=== PATIENT | female | born 1970 | race Caucasian/White ===

== ENCOUNTER → 2017-02-07 | Outpatient (CLI) | payer OTHER ==
[~2017-02-07] MED LIST: No meds per pt.
== END | disposition home or self-care (01) ==
LOC: CFH 08:50
PROVIDERS: ATTEND Family Medicine
DX: Z12.31 Encounter for screening mammogram for malignant neoplasm of breast (principal)
CPT/HCPCS: G0202

== ENCOUNTER → 2019-01-22 | Outpatient (CLI) | payer OTHER | END | disposition home or self-care (01) | LOC: RAD 08:59 | PROVIDERS: ATTEND Family Medicine | DX: M79.604 Pain in right leg (principal) ==

== ENCOUNTER → 2021-05-11 | Outpatient (CLI) | payer OTHER | END | disposition home or self-care (01) | LOC: CFH 10:36 | PROVIDERS: ATTEND Family Medicine | DX: N60.01 Solitary cyst of right breast (principal); R92.2 Inconclusive mammogram; N64.89 Other specified disorders of breast | CPT/HCPCS: 76642; 77061; 77065; G0279 ==

== ENCOUNTER 2021-06-25 04:51 | Emergency (ER) | payer OTHER ==
[~2021-06-25] VITALS: Ht 165.1 cm; Wt 77.5 kg
[2021-06-25] MEDS ORDERED: ASPIRIN 81 MG TABLET CHEW PO ONE (05:30)
--- NOTE | 2021-06-25 06:43 | NUR ---
PT TO ROOM FROM LOBBY
[2021-06-25 06:56] LABS: BASOPHILS % (AUTO) 0 % (0-1); EOSINOPHILS % (AUTO) 3 % (1-7); LYMPHOCYTES % (AUTO) 10 % (22-44); MEAN CORPUSCULAR HEMOGLOBIN 30.8 pg (27.0-34.8); MEAN CORPUSCULAR HGB CONC 32.8 g/dL (32.4-35.8); MEAN PLATELET VOLUME 8.5 fL (7.4-10.4); MONOCYTES % (AUTO) 6 % (2-9); NEUTROPHILS % (AUTO) 80 % (42-75); PLATELET COUNT 277 x10^3/uL (130-400); RED BLOOD COUNT 3.93 x10^6/uL (3.82-5.3); RED CELL DISTRIBUTION WIDTH 13.8 % (9.6-15.2)
[2021-06-25] MEDS ORDERED: ASPIRIN 81 MG TABLET CHEW ONE (07:12)
--- NOTE | 2021-06-25 07:15 | NUR ---
BEDSIDE REPORT AND CARE FROM CORNELIA READ AT THIS TIME. 50 Y/O F PRESENT STATING "CP STARTED YESTERDAY EVENING, GOT WORSE WHEN I LAID DOWN FOR BED, THEN SUBSIDING,THEN WOKE UP AT 4AM AND PAIN WAS BACK, IT'S IN THE CENTER AND MOVES OUT TO BOTH SIDES, IT'S WORSE WHEN I BREATH IN." CONT PULSE OX,BP, CARDIAC MONITORS APPLIED. VSS. SR ON MONITOR. EKG COMPLETED IN TRIAGE. RATES CP 5/10. A&OX4. DENIES SOB, COUGH, FEVER, CHILLS, N/V/D, DIZZINESS. ASSESSMENT COMPLETED. PT REPORTS TAKING ASPIRIN AT MIDNIGHT LAST NIGHT, UNSURE DOSAGE. TO DISCUSS ASA ORDERED WITH DR. KELLER. CALL LIGHT IN REACH. FALL PRECAUTIONS IN PLACE. SIDE RAILS UP. BED LOWEST POSITION.
--- NOTE | 2021-06-25 07:52 | NUR ---
DISCUSSED ASA ORDERED WITH DR. KELLER AND PT REPORT OF TAKING OWN ASA AT MIDNIGHT. MEDICATED HELD PER MD AT THIS TIME.
--- NOTE | 2021-06-25 08:18 | NUR ---
PT RESTING COMFORTABLY. DENIES NEED TO USE RESTROOM. REPORTS "PAIN IS THE SAME, ABOUT 4-5, MORE WORRIED THAN PAIN I THINK, STILL IN CENTER OF CHEST AND GOES OUT TO RIGHT AND LEFT WHEN I TAKE A DEEP BREATH, REGULAR BREATHING NOT BAD LIKE 2/10 PAIN." REFUSES NEED FOR PAIN MEDICATION AT THIS TIME. AWAITING LABS AND RECHECK BY ERP. VSS. SR ON MONITOR. CALL LIGHT IN REACH. FALL PRECUATIONS IN PLACE.
--- NOTE | 2021-06-25 08:37 | NUR ---
LABS STILL PENDING
[2021-06-25 08:42] LABS: ALANINE AMINOTRANSFERASE 27 U/L (12-78); ALBUMIN 3.1 g/dL (3.4-5.0); CALCIUM 9.1 mg/dL (8.5-10.1); CREATININE 0.73 mg/dL (0.55-1.02)
[2021-06-25 08:47] LABS: ALKALINE PHOSPHATASE 68 U/L (45-117); BILIRUBIN,TOTAL 0.3 mg/dL (0.2-1.0); TOTAL PROTEIN 7.4 g/dL (6.4-8.2); TROPONIN I < 0.015 ng/mL (0.000-0.045)
[2021-06-25 08:51] LABS: ANION GAP 5 mmol/L (5-15); CHLORIDE 108 mmol/L (98-107)
--- NOTE | 2021-06-25 08:53 | NUR ---
BEDSIDE REPORT AND TRANSFER OF CARE TO DANILO RN AT THIS TIME
--- NOTE | 2021-06-25 08:56 | NUR ---
BEDSIDE REPORT FROM RORO BONILLA. PT RESTING IN [facility], MONITORING IN PLACE, PT STATES NO NEEDS AT THIS TIME, AWAITING LAB RESULTS, PT UPDATED ON POC, NADN AT THIS TIME, WCTM.
[2021-06-25] MEDS ORDERED: OMNIPAQUE 350 MG/ML, 100ML BOTTLE ONE (09:55)
--- NOTE | 2021-06-25 11:43 | NUR ---
CT CALLED ABOUT READ NOT BEING BACK YET. PER DOOR TO DOOR LEAD GENERATION SREE, SHE WILL CHECK ON THE RESULT AND CALL BACK.
--- NOTE | 2021-06-25 12:09 | NUR ---
PER SREE, BOARD HAMMER OPERATOR, RADIOLOGIST HAS BEEN BUSY AND IS READING CT HE RECEIVE THEM. RADIOLOGIST EXT IS [id number].
[2021-06-25 12:21] VITALS: BP 115/71
--- NOTE | 2021-06-25 13:10 | NUR ---
RADIOLOGIST CALLED. STATED HE IS READING CTA AT THIS TIME. ALSO STATES THERE WAS AN IT ISSUE WITH PACS AND IMAGES DIDN'T GET TO HIM UNTIL ABOUT AN HOUR AGO.
== END 2021-06-25 13:48 | disposition home or self-care (01) ==
LOC: ED 08:51
DX: M94.0 Chondrocostal junction syndrome [Tietze] (principal); R07.89 Other chest pain
CPT/HCPCS: 36415; 71045; 71275; 80053; 83690; 84484; 85025; 85379; 93005; 99285; Q9967